=== PATIENT | female | born 1980 | race Caucasian/White ===

== ENCOUNTER 2017-03-07 10:37 | Emergency (ER) | payer SELFPAY ==
[~2017-03-07] VITALS: Ht 154.9 cm; Wt 68.0 kg
[~2017-03-07 10:37] MED LIST: AMOX500T PO
[2017-03-07 10:42] VITALS: BP 125/62; PULSE 90; RESP 16; TEMP 98.8; O2SAT 98
[2017-03-07] MEDS ORDERED: BUSP5TAB PO (10:50)
[2017-03-07] MEDS ORDERED: LIDOCAINE 1%/EPINEPHrine 1:100,000 SOLN 20 ML VIAL INFIL ONE (11:15)
[2017-03-07] MEDS ORDERED: IBUPROFEN 800 MG TAB PO ONE (11:15)
--- NOTE | 2017-03-07 11:21 | PD ---
HPI Chief Complaint: Skin Problem Time Seen by Provider: 10:54 Travel History International Travel<30 days: No Contact w/Intl Traveler<30days: No Traveled to known affect area: No History of Present Illness HPI 37-year-old female presents to the ED for evaluation of 3 day history of redness , swelling and pain of the posterior right shoulder. The patient states that she's had a smaller, painless lump in the area for approximately 2 years. She can identify in no acute injury that caused this recent worsening. She states that the pain is rated 6/10, constant, radiates down the arm. The pain is worsened by palpation of the area. She denies fevers, chills, nausea, vomiting , numbness, tingling, weakness, limitations to range of motion of the extremity. She denies squeezing the area. No treatment attempt at home. PFSH Past Medical History Asthma: Yes Anxiety: Yes Depression: Yes High Cholesterol: No Cerebrovascular Accident: No Diminished Hearing: No Hypertension: No Integumentary: Yes (BILATREAL HANDS RASH FOR MONTHS) Myocardial Infarction: No ?: Not LMP: LAST MONTH : 7 Para: 3 Miscarriage: 2 : 2 Ectopic : Yes Dilation and Curettage (D&C): No Tubal Ligation: Yes Past Surgical History Section: Yes (x3) Social History Alcohol Use: No Tobacco Use: No Substance Use: No Allergies-Medications (Allergen,Severity, Reaction): Coded Allergies: No Known Allergies (Verified Adverse Reaction, Unknown, 03/07/17) Reported Meds & Prescriptions Reported Meds & Active Scripts Active Ibuprofen 600 Mg Tab 600 Mg PO Q8H PRN Clindamycin (Clindamycin HCl) 300 Mg Cap 300 Mg PO Q6H 7 Days Reported Buspirone (Buspirone HCl) 5 Mg Tab 5 Mg PO PRN Review of Systems Except as stated in HPI: all other systems reviewed are Neg Physical Exam Narrative GENERAL: Well-nourished, well-developed white female in no acute distress. SKIN: Focused skin assessment warm/dry. SKIN: There is an indurated area in the posterior right shoulder which measures about 2 cm in diameter. It is fluctuant but there is no pointing or drainage. There is a zone of inflammation around it but no lymphangitis. HEAD: Normocephalic. EYES: No scleral icterus. No injection or drainage. NECK: Supple, trachea midline. No JVD or lymphadenopathy. CARDIOVASCULAR: Regular rate and rhythm without murmurs, gallops, or rubs. RESPIRATORY: Breath sounds equal bilaterally. No accessory muscle use. GASTROINTESTINAL: Abdomen soft, non-tender, nondistended. MUSCULOSKELETAL: No cyanosis, or edema. Patient retains full, active, painless ROM of the right extremity. BACK: Nontender without obvious deformity. No CVA tenderness. Data Data Last Documented VS Vital Signs Date Time Temp Pulse Resp B/P (MAP) Pulse Ox O2 Delivery O2 Flow Rate FiO2 03/07/17 10:42 98.8 90 16 125/62 (83) 98 Orders Orders Wound Culture And Gram Stain (03/07/17 11:15) Ibuprofen (Motrin) (03/07/17 11:15) Lidocai-Epi 1%-1:100,000 Inj (Xylocaine- (03/07/17 11:15) Lidocai-Epi 1%-1:100,000 Inj (Xylocaine- (03/07/17 11:45) Ed Discharge Order (03/07/17 12:33) [facility] Medical Decision Making Medical Screen Exam Complete: Yes Emergency Medical Condition: Yes Differential Diagnosis Assessment versus cellulitis versus infected sebaceous cyst versus other Narrative Course 37-year-old female presents to the ED for evaluation of 3 day history of redness , swelling and pain of the posterior right shoulder. She states that the pain is rated 6/10, constant, radiates down the arm, worsened by palpation of the area. She denies fevers, chills, nausea, vomiting, numbness, tingling, weakness , limitations to range of motion of the extremity. She denies squeezing the area. Vitals reviewed. Physical exam suspicious for abscess versus infected sebaceous cyst. I&D was performed. Please see my procedure note for details. She is prescribed ibuprofen and clindamycin. I informed the patient that this is likely a sebaceous cyst and may return. Definitive treatment would be surgical excision by primary care, dermatology or general surgeon. She was given detailed wound care instructions. We discussed reasons to return to the ED. She indicated understanding of instructions and is agreeable a care plan. The patient is stable and discharged home. Procedures Procedure Narrative INCISION AND DRAINAGE OF ABSCESS: The area was prepped and was sterilely draped. A subcutaneous wheal of 1% Xylocaine with epinephrine with a total number 4 mL was used to anesthetize the area properly. A number 11 scalpel was used to make a 1-cm incision across the area of the abscess. The abscess was drained, complex loculations were broken down, and irrigated with normal saline. Cultures were obtained. Sterile dressing applied. Patient advised to keep the wound clean, dry and covered. Diagnosis Primary Impression: Infected sebaceous cyst of skin Referrals: [facility] Primary Care Physician Patient Instructions: Cyst (ED), General Instructions Additional Instructions: Keep the wound clean, dry and covered. Take every antibiotic pill until they are all gone. Follow-up with a unclaimed property manager for definitive treatment of your sebaceous cyst. Return to the ED for worsening symptoms or any urgent or emergent medical condition. Med/Other Pt SpecificInfo: Prescription(s) given Scripts Ibuprofen (Ibuprofen) 600 Mg Tab 600 MG PO Q8H Y for PAIN, #15 TAB 0 Refills Prov: Feng Leal MD 03/07/17 Clindamycin (Clindamycin) 300 Mg Cap 300 MG PO Q6H for Infection for 7 Days, #28 CAP 0 Refills Prov: Feng Leal MD 03/07/17 Disposition: 01 DISCHARGE HOME Condition: Stable Lindsey Trujillo Mar 07, 2017 11:21
[2017-03-07] MEDS ORDERED: CLIN300C5 PO (11:27)
[2017-03-07] MEDS ORDERED: IBUP-232 PO (11:27)
[2017-03-07] MEDS ORDERED: LIDOCAINE 1%/EPINEPHrine 1:100,000 SOLN 30 ML VIAL INFIL ONE (11:45)
== END 2017-03-07 12:39 | disposition home or self-care (01) ==
LOC: PHEFT 10:37
DX: L72.3 Sebaceous cyst (principal); J45.909 Unspecified asthma, uncomplicated; F41.9 Anxiety disorder, unspecified; F32.9 Major depressive disorder, single episode, unspecified
CPT/HCPCS: 10060; 87070